=== PATIENT | male | born 2005 ===

== ENCOUNTER 2025-07-21 19:49 | Emergency (ER) | payer MEDICAID ==
[~2025-07-21] VITALS: Ht 185.4 cm; Wt 125.8 kg
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
[2025-07-21 21:00] VITALS: BP 140/90; PULSE 82; RESP 18; TEMP 98.6; O2SAT 99
== END 2025-07-21 21:01 | disposition home or self-care (01) ==
LOC: ER 19:51
DX: M54.2 Cervicalgia (principal); V89.2XXA Person injured in unspecified motor-vehicle accident, traffic, initial encounter; Y93.89 Activity, other specified; Y92.89 Other specified places as the place of occurrence of the external cause; Y99.8 Other external cause status
CPT/HCPCS: 72040; 99283